=== PATIENT | female | born 1970 | race Asian ===

== ENCOUNTER 2017-01-25 14:24 | Outpatient (CLI) | payer OTHER ==
--- NOTE | 2017-01-25 16:21 | Mammography Report ---
DIGITAL DIAGNOSTIC BILATERAL MAMMOGRAM: 01/25/2017 CLINICAL INDICATION: A 46-year-old with localized breast tenderness left inner breast, bilateral axi llary pain. TECHNIQUE: Bilateral CC, laterally exaggerated CC, MLO, true lateral views. Markers were placed at the site of maximal tenderness identified by the patient in the left inner breast. COMPARISON: 02/05/2014, 12/11/2010 FINDINGS: The breasts again demonstrate heterogeneously dense fibroglandular parenchyma bilaterally. Punctate, typically benign calcifications are present. No suspicious masses, clustered microcalcif ications, or regions of architectural distortion are identified. Specifically, no mammographic abnor mality is appreciated in the inner left breast, at the site of tenderness indicated by the markers. IMPRESSION: BENIGN FINDINGS. RECOMMENDATION: Routine annual screening unless otherwise clinically indicated. BIRADS CATEGORY 2 - BENIGN FINDINGS. STANDARD QUALIFYING STATEMENTS 1. This examination was reviewed with the aid of Computer-Aided Detection (CAD). 2. A negative or benign imaging report should not delay biopsy if clinically suspicious findings are present. Consider surgical consultation if warranted. More than 5% of cancers are not identified by i maging. 3. Dense breasts may obscure an underlying neoplasm. JOB #: [id number] EXT JOB #:[id number]
== END 2017-01-25 14:25 | disposition home or self-care (01) ==
LOC: DI 14:24
PROVIDERS: ATTEND Family Medicine
DX: N64.4 Mastodynia (principal)
CPT/HCPCS: 77066

== ENCOUNTER 2017-07-14 09:49 | Outpatient (CLI) | payer OTHER ==
--- NOTE | 2017-07-14 14:11 | CT Report ---
CT BRAIN WITHOUT CONTRAST: 07/14/2017 CLINICAL INDICATION: Vertigo, headache. TECHNIQUE: Axial CT images of the brain were obtained without intravenous contrast. COMPARISON: No previous CT is available for comparison. FINDINGS: The ventricles and sulci are normal in size, shape and configuration. The basilar cisterns are patent. There is no evidence of hemorrhage, mass effect, or midline shift. The visualized orbital contents and paranasal sinuses are unremarkable. IMPRESSION: NORMAL CT OF THE BRAIN WITHOUT CONTRAST. CT DOSE REDUCTION STATEMENT In accordance with CT protocol optimization, one or more of the following dose reduction techniques were utilized for this exam: automated exposure control, adjustment of mA and/or KV based on patient size, or use of iterative reconstructive technique. TD: 07/14/2017 14:10
== END 2017-07-14 09:50 | disposition home or self-care (01) ==
LOC: DI 09:49
PROVIDERS: ATTEND Family Medicine
DX: R42 Dizziness and giddiness (principal); R51 Headache
CPT/HCPCS: 70450

== ENCOUNTER 2017-07-21 08:00 | Outpatient (CLI) | payer OTHER ==
[2017-07-21 18:48] LABS: BASOPHILS # (AUTO) 0.1 10^3/uL (0.0-0.1); BASOPHILS % (AUTO) 1.1 %; EOSINOPHILS # (AUTO) 0.1 10^3/uL (0.0-0.7); EOSINOPHILS % (AUTO) 2.2 %; HGB - HEMOGLOBIN 13.9 g/dL (12.0-16.0); LYMPHOCYTES % (AUTO) 36.6 %; MEAN CORPUSCULAR HEMOGLOBIN 30.3 pg (27.0-31.0); MEAN CORPUSCULAR HGB CONC 32.6 g/dL (32.0-36.0); MEAN CORPUSCULAR VOLUME 92.8 fL (81.0-99.0); MONOCYTES # (AUTO) 0.5 10^3/uL (0.0-1.0); MONOCYTES % (AUTO) 9.8 %; NEUTROPHILS # (AUTO) 2.8 10^3/uL (1.5-6.6); NEUTROPHILS % (AUTO) 50.3 %; PLT - PLATELET COUNT 259 10^3/uL (130-450); RED CELL DISTRIBUTION WIDTH 13.2 % (12.0-15.0); WHITE BLOOD COUNT 5.6 x10^3/uL (4.8-10.8)
[2017-07-21 19:09] LABS: BUN - BLOOD UREA NITROGEN 15 mg/dL (6-20); CALCIUM 9.1 mg/dL (8.5-10.3); CARBON DIOXIDE - CO2 25 mmol/L (21-32); CHLORIDE 101 mmol/L (101-111); CREATININE 0.6 mg/dL (0.4-1.0); GFR - MDRD 107 (>89); GLUCOSE 92 mg/dL (70-100); SODIUM 133 mmol/L (135-145)
[2017-07-21 19:15] LABS: TROPONIN I < 0.04 ng/mL (<0.49)
[2017-07-21 19:17] LABS: CREATINE KINASE MB 3.4 ng/mL (0.6-6.3)
== END 2017-07-21 08:01 ==
LOC: LAB.WCP 08:00
PROVIDERS: ATTEND Family Medicine
DX: R06.09 Other forms of dyspnea (principal)
CPT/HCPCS: 36415; 80048; 82553; 83880; 84443; 84484; 85025; 85379